=== PATIENT | female | born 1965 | race Caucasian/White ===

== ENCOUNTER 2019-02-10 05:10 | Day surgery (SDC) | payer OTHER ==
[~2019-02-10 05:10] MED LIST: OMEPRAZOLE10 MG
[2019-02-10] MEDS ORDERED: NEXIUM 24HR20 MG PO ×2 (09:17)
[2019-02-10] MEDS ORDERED: CARAFATE1 GM PO ×2 (09:18)
== END 2019-02-10 10:10 | disposition home or self-care (01) ==
LOC: AMB-ENDOS 05:10 → CIR.AMB 07:15 → AMB-ENDOS 07:15
DX: K31.7 Polyp of stomach and duodenum (principal)

== ENCOUNTER 2019-02-14 07:13 | Outpatient (CLI) | payer OTHER ==
[~2019-02-14 07:13] MED LIST changes: +CARAFATE1 GM PO; +NEXIUM 24HR20 MG PO
== END 2019-02-14 07:15 | disposition home or self-care (01) ==
LOC: TOM 07:13
DX: D37.1 Neoplasm of uncertain behavior of stomach (principal)

== ENCOUNTER 2019-02-16 07:18 | Outpatient (CLI) | payer OTHER | END 2019-02-16 07:20 | disposition home or self-care (01) | LOC: RX STUDY 07:18 | DX: D37.1 Neoplasm of uncertain behavior of stomach (principal) ==

== ENCOUNTER 2019-03-03 14:56 | Inpatient (IN) | payer OTHER ==
[2019-03-08] MEDS ORDERED: ESOMEPRAZOLE MA20 MG (09:13)
[2019-03-10] MEDS ORDERED: CARAFATE1 GM/10 ML PO (09:22)
[2019-03-10] MEDS ORDERED: PERCOCET 5-3251 EACH PO (09:22)
[2019-03-10] MEDS ORDERED: NEXIUM 24HR20 MG PO (09:23)
[2019-03-10] MEDS ORDERED: POLY119PG PO (09:24)
== END 2019-03-10 11:14 | disposition home or self-care (01) | DRG 327 ==
LOC: O/R 03-09 05:40 → SURG 03-09 07:30 → SURH 03-09 15:31
PROVIDERS: ADMIT Surgery
PROC: 0WQF4ZZ Repair Abdominal Wall, Percutaneous Endoscopic Approach (ICD-10-PCS; 2019-03-09)
PROC: 0DB64ZZ Excision of Stomach, Percutaneous Endoscopic Approach (ICD-10-PCS; 2019-03-09)
PROC: 0DB68ZZ Excision of Stomach, Via Natural or Artificial Opening Endoscopic (ICD-10-PCS; 2019-03-09)
PROC: 0BUT4JZ Supplement Diaphragm with Synthetic Substitute, Percutaneous Endoscopic Approach (ICD-10-PCS; principal; 2019-03-09 10:00)
DX: C7A.092 Malignant carcinoid tumor of the stomach (principal); K44.0 Diaphragmatic hernia with obstruction, without gangrene; K42.0 Umbilical hernia with obstruction, without gangrene; K31.7 Polyp of stomach and duodenum; E31.21 Multiple endocrine neoplasia [MEN] type I

== ENCOUNTER → 2020-05-26 09:18 | Outpatient (CLI) | payer OTHER ==
[~2020-05-26 09:18] MED LIST changes: +CARAFATE1 GM/10 ML PO; +ESOMEPRAZOLE MA20 MG; +PERCOCET 5-3251 EACH PO; +POLY119PG PO
== END | disposition home or self-care (01) ==
LOC: LAB 09:18
PROVIDERS: ATTEND Orthopaedic Surgery
DX: E56.1 Deficiency of vitamin K (principal); M85.88 Other specified disorders of bone density and structure, other site; E55.9 Vitamin D deficiency, unspecified; N92.5 Other specified irregular menstruation; E78.49 Other hyperlipidemia; E03.8 Other specified hypothyroidism; B20 Human immunodeficiency virus [HIV] disease

== ENCOUNTER 2022-04-23 13:03 | Outpatient (CLI) | payer OTHER | END 2022-04-23 13:08 | disposition home or self-care (01) | LOC: RAD 13:03 | PROVIDERS: ATTEND Orthopaedic Surgery | DX: M25.561 Pain in right knee (principal); M25.562 Pain in left knee; M25.572 Pain in left ankle and joints of left foot ==

== ENCOUNTER → 2022-07-21 | Outpatient (CLI) | payer OTHER | END | disposition home or self-care (01) | LOC: NUCLEAR 07-17 09:00 | PROVIDERS: ATTEND General Practice | DX: R41.9 Unspecified symptoms and signs involving cognitive functions and awareness (principal); R41.3 Other amnesia | CPT/HCPCS: 78803; A9557 ==

== ENCOUNTER 2024-05-21 12:23 | Emergency (ER) | payer OTHER ==
[~2024-05-21] VITALS: Ht 160 cm; Wt 65.3 kg
[2024-05-21] MEDS ORDERED: OZEMPIC0.25 MG/02 SQ (13:10)
[2024-05-21 14:05] LABS: HEMATOCRIT 40.7 % (36.0-45.00); MEAN CELL VOLUME 87.9 fL (80.00-100.00); MEAN CORPUSCULAR HEMOGLOBIN 30.4 pg (27.00-32.0); MEAN CORPUSCULAR HGB CONC 34.5 g/dl (32.0-36.0); PLATELET COUNT 246 K/uL (150-450); RED BLOOD COUNT 4.63 M/uL (4.00-6.00); RED CELL DISTRIBUTION WIDTH 13.8 % (11.5-14.5)
[2024-05-21 14:07] LABS: URINE APPEARANCE Cloudy; URINE BILIRRUBIN Negative (NEGATIVE); URINE BLOOD Negative; URINE COLOR Yellow; URINE GLUCOSE Negative (NEGATIVE); URINE KETONE Negative (NEGATIVE); URINE LEUKOCYTE Moderate; URINE NITRATE Positive; URINE PROTEIN Negative (NEGATIVE); URINE UROBILINOGEN 0.2 E.U./dl
[2024-05-21 14:09] LABS: URINE EPITHELIAL CELLS 20.7 uL (0.0-38.8); URINE WBC 304.2 uL (0.0-23.2)
[2024-05-21 14:16] LABS: URINE BACTERIA > 9821.5 uL (0.0-1933); URINE RBC 0.8 uL (0.0-20.8)
[2024-05-21 14:38] LABS: CALCIUM 9.5 mg/dL (8.5-10.1); CREATININE SERUM 0.85 mg/dL (0.55-1.02); GFR 68.94; POTASSIUM 4.29 mEq/L (3.5-5.1)
== END 2024-05-21 15:23 | disposition home or self-care (01) ==
LOC: ER 12:25
PROVIDERS: General Practice
DX: N39.0 Urinary tract infection, site not specified (principal)